=== PATIENT | female | born 1990 | race Caucasian/White ===

== ENCOUNTER → 2016-12-01 | Outpatient (CLI) | payer MEDICAID, OTHER ==
[2016-12-01 12:52] LABS: BASO % 0.4 % (0.0-1.0); EOS # 0.1 K/mm3 (0.0-0.50); EOS % 1.3 % (0.0-3.0); LARGE UNSTAINED CELL # 0.1 K/mm3 (0.0-0.4); LARGE UNSTAINED CELL % 3.1 % (0.0-4.0); LYMPH # 1.3 K/mm3 (1.5-6.5); LYMPH % 27.4 % (24.0-44.0); MEAN CORPUSCULAR HEMOGLOBIN 28.3 pg (27.0-33.0); MEAN CORPUSCULAR HGB CONC 32.9 g/dl (32.0-36.5); MEAN CORPUSCULAR VOLUME 86.1 fl (80.0-96.0); MONO # 0.7 K/mm3 (0.0-0.8); MONO % 14.8 % (0.0-5.0); NEUTROPHILS # 2.3 K/mm3 (1.8-7.7); PLATELET COUNT, AUTOMATED 175 k/mm3 (150-450); RED CELL DISTRIBUTION WIDTH 13.5 % (11.5-14.5); WHITE BLOOD COUNT 4.4 K/mm3 (4.0-10.0)
[2016-12-01 14:26] LABS: HIV SCRN NEGATIVE (NEGATIVE)
[2016-12-01 14:27] LABS: CONTROL LINE INT CTR LINE PRESENT; HIV SCRN1 NEGATIVE (NEGATIVE)
[2016-12-02 09:28] LABS: HBsAg Prenatal NEGATIVE (NEGATIVE)
== END ==
LOC: M LAB 11:58
PROVIDERS: ATTEND Advanced Practice Midwife
DX: Z34.81 Encounter for supervision of other normal pregnancy, first trimester (principal)

== ENCOUNTER → 2017-02-01 | Outpatient (CLI) | payer OTHER | LOC: M LAB 13:40 | PROVIDERS: ATTEND Advanced Practice Midwife | DX: Z36 Encounter for antenatal screening of mother (principal) ==

== ENCOUNTER → 2017-02-17 | Outpatient (CLI) | payer OTHER ==
--- NOTE | 2017-02-18 04:00 | REP ---
Clinical: Anatomical evaluation. Comparison: None . Findings: Examination demonstrates a single live intrauterine in transverse (head to maternal left side) presentation. motion is identified by technologist. Placenta is noted anteriorly and grade zero without evidence for placenta previa or abruption. Amniotic fluid volume is normal. Cervix measures 4.4 cm in length and appears closed. No evidence for nuchal cord. Gestational age by LMP 19 weeks 4 days with HECTOR 07/10/2017 . Gestational age by current measurements 90 weeks 3 days with HECTOR 07/11/2017 . FHR equals 144 beats per minute. BPD 4.6 cm 19 weeks 6 days HC 17.0 cm 19 weeks 4 days AC 14.2 cm 19 weeks 4 days FL 3.0 cm 19 weeks 2 days HL 2.7 cm 18-week 6 days HC/AC ratio 1.20 Estimated weight 293 grams ( 41st percentile). Anatomical assessment demonstrates normal structures including cranium, choroid plexus, cavum, cerebellum/posterior fossa, lungs, four-chamber heart, diaphragm, stomach, cord insertion/three-vessel cord, bladder, spine, and extremities. Limited evaluation of the facial features, cardiac ventricular outflow tracts, and kidneys noted. Impression: Single live intrauterine in transverse lie demonstrating appropriate interval growth. Anatomical limitations as described above may warrant reevaluation. Signed by Arun Blair MD 02/18/2017 03:50 A
== END ==
LOC: M RAD 11:10
PROVIDERS: ATTEND Advanced Practice Midwife
DX: Z34.82 Encounter for supervision of other normal pregnancy, second trimester (principal)

== ENCOUNTER → 2017-04-08 | Outpatient (CLI) | payer OTHER ==
[~2017-04-08] MED LIST: MOTR200T44 PO; PRENTAB9 PO; TUMS500C PO; TYLE325C PO
[2017-04-08 13:02] LABS: MEAN CORPUSCULAR HGB CONC 33.5 g/dl (32.0-36.5); MEAN CORPUSCULAR VOLUME 86.5 fl (80.0-96.0); RED CELL DISTRIBUTION WIDTH 13.9 % (11.5-14.5); WHITE BLOOD COUNT 10.4 K/mm3 (4.0-10.0)
== END ==
LOC: M SMT 09:18
PROVIDERS: ATTEND Advanced Practice Midwife
DX: Z34.82 Encounter for supervision of other normal pregnancy, second trimester (principal)

== ENCOUNTER → 2017-04-22 | Outpatient (CLI) | payer OTHER | LOC: M LAB 07:45 | PROVIDERS: ATTEND Obstetrics & Gynecology | DX: R73.02 Impaired glucose tolerance (oral) (principal) ==

== ENCOUNTER → 2017-06-17 | Outpatient (REF) | payer OTHER | LOC: M LAB REF 13:15 | PROVIDERS: ATTEND Specialist | DX: Z34.83 Encounter for supervision of other normal pregnancy, third trimester (principal); Z3A.00 Weeks of gestation of pregnancy not specified ==

== ENCOUNTER → 2017-06-23 | Outpatient (CLI) | payer OTHER ==
--- NOTE | 2017-06-23 10:21 | REP ---
Clinical: Gestational diabetes. Growth evaluation. Comparison: 02/17/2017 . Findings: Examination demonstrates a single live intrauterine in cephalic presentation. motion is identified by technologist. Placenta is noted anteriorly and grade one without evidence for placenta previa or abruption. Amniotic fluid volume is normal. No evidence for nuchal cord. Gestational age by LMP 37 weeks 4 days with HECTOR 07/10/2017 . Gestational age by current measurements 35 weeks 2 days with HECTOR 07/26/2017 . DAVID = 8.6 cm (7.4 - 24.1) FHR equals 139 beats per minute. BPD 8.5 cm 34 weeks 1 day HC 32.5 36 weeks 6 days AC 32.9 36 weeks 6 days FL 36.8 34 weeks 5 days HC/AC ratio 0.99 Estimated weight 2119 grams (30th percentile based on age by LMP). Impression: Single live advanced gestation in cephalic presentation. Estimated weight is within normal range. DAVID normal. Signed by Arun Blair MD 06/23/2017 10:12 A
== END ==
LOC: M SMT 09:23
PROVIDERS: ATTEND Specialist
DX: Z34.83 Encounter for supervision of other normal pregnancy, third trimester (principal); Z3A.37 37 weeks gestation of pregnancy

== ENCOUNTER 2017-07-04 06:52 | Inpatient (IN) | payer OTHER ==
[~2017-07-04] VITALS: Ht 167.6 cm; Wt 103.0 kg
[2017-07-04] VITALS (17 sets, daily range): BP systolic 93–114; BP diastolic 59–76
[2017-07-04] MEDS ORDERED: PRENTAB9 PO (07:10)
[2017-07-04] MEDS ORDERED: TUMS500C PO (07:11)
[2017-07-04] MEDS ORDERED: PENICILLIN G POTASSIUM IV 5 MU in D5W MINI-BAG PLUS 100 ML IV STA (07:27)
[2017-07-04 08:05] LABS: MEAN CORPUSCULAR HEMOGLOBIN 29.3 pg (27.0-33.0); MEAN CORPUSCULAR HGB CONC 35.4 g/dl (32.0-36.5); MEAN CORPUSCULAR VOLUME 82.7 fl (80.0-96.0); RED CELL DISTRIBUTION WIDTH 13.8 % (11.5-14.5); WHITE BLOOD COUNT 9.8 K/mm3 (4.0-10.0)
[2017-07-04] MEDS: miSOPROStol 50 MCG 1/2 TAB (S0191) PO SCH ×3 (08:07→16:45)
--- NOTE | 2017-07-04 15:07 | HPE ---
DATE OF ADMISSION: 07/04/2017 Lynda is a 1, para 0 at 39 weeks gestation with an estimated date of confinement (EDC) of 07/10/2017 based on last normal period and confirmed by first trimester ultrasound. She presents to labor and delivery today for induction of labor due to gestational diabetes, diet controlled, per consult with Dr. Osiris Morgan. Her care was initiated at [facility] in the first trimester. course was complicated by smoking throughout , A1 gestational diabetes and a family history of open neural tube defect. OBSTETRICAL HISTORY: Primigravida. OB LABS: Blood type O+, antibody screen negative, rubella immune, VDRL nonreactive. Urine culture: No growth. Hepatitis B surface antigen negative, HIV negative. Hepatitis C antibody negative. Gonorrhea and chlamydia negative. She did undergo the quad screen and it returned normal results. Gestational diabetic screening elevated at 191, 3-hour elevated fasting 94, 1-hour 226, 2-hour 176 and 3-hour 67. Her gestational diabetes has been well controlled with dietary management throughout her . Her GBS is positive known. PAST MEDICAL HISTORY: Seasonal allergies. SURGERIES: Tonsillectomy. FAMILY HISTORY: Cardiomyopathy, heart disease, open neural tube defect. SOCIAL HISTORY: The patient is single. However, her partner is at bedside and supportive. She is a smoker. She denies alcohol and drug use. Denies history of any sexually transmitted infections and denies a history of abuse, physical, sexual and emotional. ALLERGIES: No known drug allergies. CURRENT MEDICATIONS: Include vitamins OBJECTIVE: Temperature is 97.9, pulse 71, respirations 18, blood pressure 113/71. She is alert and oriented times three, in no apparent distress, smiling and talkative. heart rate is 145 with moderate variability, positive accelerations observed. No decelerations. Dickson every 4-6 minutes, palpate mild. Her abdomen is gravid, cephalic presentation. Estimated weight 6 pounds. Sterile vaginal exam: 1 cm dilated, 80% effaced, -3 station. ASSESSMENT: Intrauterine at 39 weeks gestation. heart rate category one. Gestational diabetes. PLAN: Admit the patient to labor and delivery, labs, out of bed ad chaparro. Group B streptococcus (GBS) prophylaxis once in labor. Misoprostol 50 mcg by mouth every 4 hours for cervical ripening. I did review risks to induction including increased risk for section, failed induction of intolerance to labor. The patient has all of her questions answered and does desire to proceed with induction.
[2017-07-04] MEDS ORDERED: OXYTOCIN DRIP 30 UNITS in APPROPRIATE DILUENT 1 EA IV SCH (20:15)
[2017-07-04] MEDS: LR 1,000 ML IV SCH (20:50)
[2017-07-04] MEDS ORDERED: PENICILLIN G POTASSIUM 5 MU VIAL As Ordered ONE (21:16)
[2017-07-05] VITALS (71 sets, daily range): BP systolic 84–143; BP diastolic 48–78
[2017-07-05] MEDS ORDERED: PROMETHAZINE INJ 25 MG/ML VIAL (J2550) IV ONE (00:30)
[2017-07-05] MEDS ORDERED: BUTORPHANOL 2 MG/ML INJ (J0595) IV ONE (00:30)
[2017-07-05] MEDS ORDERED: PROMETHAZINE INJ 25 MG/ML VIAL (J2550) As Ordered ONE (00:30)
[2017-07-05] MEDS ORDERED: BUTORPHANOL 2 MG/ML INJ (J0595) As Ordered ONE (00:31)
[2017-07-05] MEDS ORDERED: PENICILLIN G POTASSIUM 5 MU VIAL As Ordered ONE (01:57)
[2017-07-05] MEDS: PENICILLIN G POTASSIUM IV 2.5 MU in D5W 100 ML IV SCH ×5 (05:53→22:37)
[2017-07-05] MEDS: LR 1,000 ML IV SCH ×2 (13:59→17:43)
[2017-07-05] MEDS ORDERED: FENTANYL 2MCG/ML ROPIVACAINE 0.2% IN 0.9% NACL 200ML IVBAG As Ordered ONE (14:38)
[2017-07-05] MEDS ORDERED: ePHEDrine SULFATE 25 MG/5 ML(5MG/ML) SYRINGE As Ordered ONE (16:29)
[2017-07-05] MEDS: ePHEDrine SULFATE 25 MG/5 ML(5MG/ML) SYRINGE IV PRN ×2 (16:35→17:36)
[2017-07-05] MEDS ORDERED: EPIDURAL COMMENT XX SCH (16:45)
[2017-07-05] MEDS ORDERED: REFRIGERATOR IV KEYS XX PRN (16:45)
[2017-07-05] MEDS ORDERED: ONDANSETRON 4MG/2ML VIAL (J2405) IV PRN (16:45)
[2017-07-05] MEDS ORDERED: diphenhydrAMINE INJ 50MG/ML VIAL (J1200) IV PRN (16:45)
[2017-07-05] MEDS ORDERED: EPIDURAL/PCA KEYS XX PRN (16:45)
[2017-07-05] MEDS ORDERED: FENTANYL/ROPIVACAINE/NACL BAG 200 ML EPIDURAL SCH (16:45)
[2017-07-05] MEDS ORDERED: NALOXONE INJ 0.4 MG/1 ML VIAL (J2310) IV PRN (16:45)
[2017-07-06] MEDS ORDERED: MEASLES,MUMPS,RUBELLA VACCINE INJ (MMR-II) (90707) SC SCH (01:15)
[2017-07-06] MEDS ORDERED: METHYLERGONOVINE MALEATE 0.2 MG TAB PO PRN (01:15)
[2017-07-06] MEDS ORDERED: DIBUCAINE 1% OINTMENT 30GM TOP PRN (01:15)
[2017-07-06] MEDS ORDERED: DOCUSATE SODIUM 100 MG CAP PO PRN (01:15)
[2017-07-06] MEDS ORDERED: RHOGAM 300 MCG (1500 IU) INJ (J2790) IM SCH (01:15)
[2017-07-06] MEDS ORDERED: OXYTOCIN 30 UNITS IN 0.9% NaCl 500ML IV BAG (J2590) As Ordered ONE (01:36)
[2017-07-06 03:25] VITALS: BP 124/67
[2017-07-06] MEDS ORDERED: ACETAMINOPHEN 500 MG TAB PO PRN (03:45)
[2017-07-06] MEDS ORDERED: IBUPROFEN 800 MG TAB PO PRN (03:45)
[2017-07-06 05:50] VITALS: BP 107/61
[2017-07-06] MEDS: PRENATAL VITAMINS CHEWABLE TABLET PO SCH (08:08)
[2017-07-06 18:00] VITALS: BP 115/65
[2017-07-07 06:00] VITALS: BP 110/59
[2017-07-07] MEDS: PRENATAL VITAMINS CHEWABLE TABLET PO SCH (09:00)
[2017-07-07] MEDS ORDERED: MOTR200T44 PO (09:14)
[2017-07-07] MEDS ORDERED: TYLE325C PO (09:15)
== END 2017-07-07 09:45 | disposition home or self-care (01) | DRG 560 ==
LOC: M LDI 06:52 → M OBS 07-06 04:58
PROVIDERS: ADMIT Advanced Practice Midwife; ATTEND Advanced Practice Midwife
PROC: 3E0DXGC Introduction of Other Therapeutic Substance into Mouth and Pharynx, External Approach (ICD-10-PCS; 2017-07-04)
PROC: 10E0XZZ Delivery of Products of Conception, External Approach (ICD-10-PCS; principal; 2017-07-06)
PROC: 0HQ9XZZ Repair Perineum Skin, External Approach (ICD-10-PCS; 2017-07-06)
DX: O24.420 Gestational diabetes mellitus in childbirth, diet controlled (principal); F17.200 Nicotine dependence, unspecified, uncomplicated; Z37.0 Single live birth; Z3A.39 39 weeks gestation of pregnancy; O99.334 Smoking (tobacco) complicating childbirth; O99.820 Streptococcus B carrier state complicating pregnancy; O70.0 First degree perineal laceration during delivery; O69.82X0 Labor and delivery complicated by other cord entanglement, without compression, not applicable or unspecified

== ENCOUNTER → 2018-05-17 | Outpatient (REF) | payer OTHER | LOC: M LAB REF 17:59 | DX: Z12.4 Encounter for screening for malignant neoplasm of cervix (principal) | CPT/HCPCS: 88142 ==

== ENCOUNTER 2020-02-21 14:52 | Emergency (ER) | payer MEDICAID, OTHER ==
[~2020-02-21] VITALS: Ht 167.6 cm; Wt 92.4 kg
[2020-02-21] MEDS ORDERED: BENA25CA4 PO (14:59)
[2020-02-21 15:58] LABS: BASO % 0.4 % (0.0-1.0); EOS # 0.1 10^3/uL (0.0-0.5); EOS % 0.9 % (0.0-3.0); HEMATOCRIT 42.2 % (36.0-47.0); HEMOGLOBIN 13.5 g/dl (12.0-15.5); LYMPH # 2.9 10^3/uL (1.5-5.0); LYMPH % 33.4 % (24.0-44.0); MEAN CORPUSCULAR HEMOGLOBIN 28.1 pg (27.0-33.0); MEAN CORPUSCULAR VOLUME 87.7 fl (80.0-96.0); MONO # 0.6 10^3/uL (0.0-0.8); MONO % 6.6 % (0.0-5.0); NEUTROPHILS % 58.2 % (36.0-66.0); PLATELET COUNT, AUTOMATED 241 10^3/uL (150-450); RED BLOOD COUNT 4.81 10^6/uL (4.00-5.40); WHITE BLOOD COUNT 8.5 10^3/uL (4.0-10.0)
[2020-02-21 16:41] LABS: ALBUMIN 3.9 GM/DL (3.2-5.2); BILIRUBIN,DIRECT 0.2 MG/DL (0.0-0.2); BILIRUBIN,TOTAL 0.6 MG/DL (0.2-1.0); TOTAL PROTEIN 7.4 GM/DL (6.4-8.2)
--- NOTE | 2020-02-21 17:21 | REP ---
RIGHT UPPER QUADRANT ULTRASOUND: Real-time sonographic evaluation of right upper quadrant performed. Gallbladder demonstrates no evidence of intraluminal sludge or calculi, wall thickening, or pericholecystic fluid. There is no intrahepatic or extrahepatic biliary dilatation, common bile duct measuring 4 mm in diameter. Liver and pancreas demonstrate no gross mass. Right kidney demonstrates no hydronephrosis with normal size 10.9 cm in length. There is no ascites. IMPRESSION: Negative right upper quadrant ultrasound. Electronically Signed by Roddy Barnett MD 02/22/2020 12:54 P
--- NOTE | 2020-02-21 17:44 | REP ---
CT ABDOMEN/PELVIS WITHOUT CONTRAST: CT abdomen/pelvis performed without oral or IV contrast. Sagittal and coronal images are performed. Visualized lung bases are clear. The liver, spleen, adrenals, pancreas, and kidneys are grossly unremarkable. No radiopaque gallstones are seen, and there is no gallbladder wall edema. No renal, ureteral, or bladder calculus is seen. There is no hydroureteronephrosis. There is no abdominal aortic aneurysm. There is no adenopathy. There is no free air or free fluid. No bowel thickening is seen. The appendix is normal. There appears to be a small cyst of the left ovary 3.5 cm in diameter. Urinary bladder is not optimally distended and not optimally evaluated. IMPRESSION: No renal, ureteral, or bladder calculus. No hydroureteronephrosis. Normal appendix. No free air or free fluid. Cyst left ovary measures 3.5 cm in maximum diameter. Electronically Signed by Roddy Barnett MD 02/22/2020 12:55 P
[2020-02-21] MEDS ORDERED: OMEP10CASR PO (17:57)
[2020-02-21 18:05] VITALS: BP 119/70
== END 2020-02-21 18:07 | disposition home or self-care (01) ==
LOC: M ED 14:52
DX: R10.11 Right upper quadrant pain (principal); N83.202 Unspecified ovarian cyst, left side; Z79.899 Other long term (current) drug therapy; F12.20 Cannabis dependence, uncomplicated

== ENCOUNTER 2020-04-04 20:23 | Emergency (ER) | payer OTHER ==
[~2020-04-04] VITALS: Ht 167.6 cm; Wt 89.5 kg
[2020-04-04 20:23] VITALS: BP 163/85
[~2020-04-04 20:23] MED LIST changes: +BENA25CA4 PO; +OMEP10CASR PO
[2020-04-04] MEDS ORDERED: ONDANSETRON 4MG/2ML VIAL IV ONE (21:15)
[2020-04-04] MEDS ORDERED: SUCRALFATE 1 GM TAB PO ONE (21:15)
[2020-04-04] MEDS ORDERED: PANTOPRAZOLE 40MG VIAL (C9113 PER 1) IV ONE (21:15)
[2020-04-04] MEDS ORDERED: GI COCKTAIL 50ML BTL(HYOSCYAMINE/MAALOX/LIDOCAINE VISCOUS)(1:3:1) PO ONE (21:15)
[2020-04-04] MEDS ORDERED: NS 1,000 ML IV ONE (21:15)
[2020-04-04 21:20] LABS: BASO % 0.4 % (0.0-1.0); EOS # 0.1 10^3/uL (0.0-0.5); EOS % 0.9 % (0.0-3.0); HEMATOCRIT 40.8 % (36.0-47.0); LYMPH # 2.1 10^3/uL (1.5-5.0); LYMPH % 25.8 % (24.0-44.0); MEAN CORPUSCULAR HEMOGLOBIN 27.9 pg (27.0-33.0); MEAN CORPUSCULAR HGB CONC 31.9 g/dl (32.0-36.5); MEAN CORPUSCULAR VOLUME 87.6 fl (80.0-96.0); MONO # 0.6 10^3/uL (0.0-0.8); MONO % 7.5 % (0.0-5.0); NEUTROPHILS # 5.2 10^3/uL (1.5-8.5); PLATELET COUNT, AUTOMATED 241 10^3/uL (150-450); RED BLOOD COUNT 4.66 10^6/uL (4.00-5.40)
[2020-04-04 21:34] LABS: APPEARANCE, URINE CLEAR (CLEAR); BACTERIA, URINE AUTO NEGATIVE (NEGATIVE); BILIRUBIN, URINE AUTO NEGATIVE (NEGATIVE); BLOOD, URINE BLOOD 2+ (NEGATIVE); COLOR, URINE YELLOW (YELLOW); GLUCOSE, URINE (UA) AUTO NEGATIVE (NEGATIVE); KETONE, URINE AUTO NEGATIVE (NEGATIVE); LEUKOCYTE ESTERASE, URINE AUTO NEGATIVE (NEGATIVE); MUCUS, URINE SMALL (NEGATIVE); NITRITE, URINE AUTO NEGATIVE (NEGATIVE); PROTEIN, URINE AUTO NEGATIVE (NEGATIVE); RBC, URINE AUTO 1 /HPF (0-3); SPECIFIC GRAVITY URINE AUTO 1.018 (1.002-1.035); SQUAMOUS EPITHELIAL CELL UR AU 1 /HPF (0-6); UROBILINOGEN, URINE AUTO 0.2 mg/dL (0.0-2.0); WBC, URINE AUTO 1 /HPF (0-3)
[2020-04-04 21:42] LABS: ALBUMIN 4.1 GM/DL (3.2-5.2); ALT/SGPT 17 U/L (12-78); BILIRUBIN,DIRECT 0.2 MG/DL (0.0-0.2); BILIRUBIN,TOTAL 0.7 MG/DL (0.2-1.0); BLOOD UREA NITROGEN 10 MG/DL (7-18); CALCIUM LEVEL 8.9 MG/DL (8.5-10.1); CARBON DIOXIDE LEVEL 26 MEQ/L (21-32); CHLORIDE LEVEL 107 MEQ/L (98-107); GLOMERULAR FILTRATION RATE > 60.0 (>60); GLUCOSE, FASTING 93 MG/DL (70-100); LIPASE 48 U/L (73-393); POTASSIUM SERUM 3.5 MEQ/L (3.5-5.1); SODIUM LEVEL 138 MEQ/L (136-145); TOTAL PROTEIN 7.8 GM/DL (6.4-8.2)
--- NOTE | 2020-04-04 21:54 | REPVR ---
PROCEDURE INFORMATION: Exam: US Abdomen Limited, Right Upper Quadrant Exam date and time: 04/04/2020 9:45 PM Age: 30 years old Clinical indication: Abdominal pain; Acute; Additional info: Ruq abd pain TECHNIQUE: Imaging protocol: Real-time ultrasound of the abdomen with image documentation. Examination was focused on the right upper quadrant. COMPARISON: GALLBLADDER US 02/21/2020 3:52 PM FINDINGS: Liver: Normal. No masses. Gallbladder: Normal. No gallstones. There is no gallbladder wall thickening. Common bile duct: Normal. No stones. No dilation. Pancreas: No focal abnormality involving the visualized portions of the pancreas. Right kidney: Mild right renal pelviectasis. IMPRESSION: 1. Normal gallbladder. 2. Mild right renal pelviectasis, CT as clinically warranted. Electronically signed by: Thien Zurita On 04/04/2020 21:54:18 PM
[2020-04-04] MEDS ORDERED: ONDA4TAB6 PO (22:23)
[2020-04-04] MEDS ORDERED: CARA1TAB6 PO (22:23)
[2020-04-04] MEDS ORDERED: PROT1TAB2 PO (22:23)
== END 2020-04-04 22:29 | disposition home or self-care (01) ==
LOC: M ED 20:23
DX: K21.9 Gastro-esophageal reflux disease without esophagitis (principal); R10.13 Epigastric pain; Z79.899 Other long term (current) drug therapy
CPT/HCPCS: 76705; 80047; 80048; 80076; 81001; 83690; 84702; 85025; 96361; 96374; 96375; 99284; C9113; J2405

== ENCOUNTER 2022-03-29 12:37 | Emergency (ER) | payer OTHER ==
[~2022-03-29] VITALS: Ht 167.6 cm; Wt 100.0 kg
[~2022-03-29 12:37] MED LIST changes: +CARA1TAB6 PO; +ONDA4TAB6 PO; +PROT1TAB2 PO
[2022-03-29] MEDS ORDERED: HYDR-3363 (12:47)
[2022-03-29] MEDS ORDERED: VENL37.598 (12:47)
[2022-03-29] MEDS ORDERED: CETI-24 (12:47)
[2022-03-29] MEDS ORDERED: ACETAMINOPHEN 500 MG TAB PO ONE (14:45)
[2022-03-29] MEDS ORDERED: LIDO5DIS41 TD (15:36)
[2022-03-29 15:45] VITALS: BP 134/86
== END 2022-03-29 15:46 | disposition home or self-care (01) ==
LOC: M ED 12:37
DX: M54.50 Low back pain, unspecified (principal); M25.552 Pain in left hip; W08.XXXA Fall from other furniture, initial encounter; Y92.099 Unspecified place in other non-institutional residence as the place of occurrence of the external cause; F10.10 Alcohol abuse, uncomplicated; F17.200 Nicotine dependence, unspecified, uncomplicated

== ENCOUNTER 2022-08-16 13:47 | Emergency (ER) | payer OTHER ==
[~2022-08-16] VITALS: Ht 167.6 cm; Wt 108.5 kg
[~2022-08-16 13:47] MED LIST changes: +CETI-24; +HYDR-3363; +LIDO5DIS41 TD; +VENL37.598
[2022-08-16 14:34] LABS: BASO % 0.3 % (0.0-1.0); EOS # 0.2 10^3/uL (0.0-0.5); EOS % 2.3 % (0.0-3.0); HEMATOCRIT 42.8 % (36.0-47.0); HEMOGLOBIN 13.6 g/dl (12.0-15.5); LYMPH # 2.2 10^3/uL (1.5-5.0); LYMPH % 25.6 % (24.0-44.0); MEAN CORPUSCULAR HEMOGLOBIN 27.4 pg (27.0-33.0); MEAN CORPUSCULAR HGB CONC 31.8 g/dl (32.0-36.5); MEAN CORPUSCULAR VOLUME 86.3 fl (80.0-96.0); MONO # 0.6 10^3/uL (0.0-0.8); MONO % 7.5 % (2.0-8.0); NEUTROPHILS # 5.5 10^3/uL (1.5-8.5); NEUTROPHILS % 63.7 % (36.0-66.0); PLATELET COUNT, AUTOMATED 266 10^3/uL (150-450); RED BLOOD COUNT 4.96 10^6/uL (4.00-5.40); WHITE BLOOD COUNT 8.6 10^3/uL (4.0-10.0)
[2022-08-16 15:00] LABS: BLOOD UREA NITROGEN 12 MG/DL (7-18); C REACTIVE PROTEIN QUANTITATIV 0.52 MG/DL (0.00-0.30); CARBON DIOXIDE LEVEL 24 MEQ/L (21-32); CHLORIDE LEVEL 112 MEQ/L (98-107); CREATININE FOR GFR 0.59 MG/DL (0.55-1.30); GLOMERULAR FILTRATION RATE > 60.0 (>60); GLUCOSE, FASTING 100 MG/DL (70-100); POTASSIUM SERUM 4.3 MEQ/L (3.5-5.1); SODIUM LEVEL 141 MEQ/L (136-145)
[2022-08-16 16:03] LABS: ERYTHROCYTE SEDIMENTATION RATE 14 mm/hr (0-20)
[2022-08-16] MEDS ORDERED: AUGMENTIN 875 MG TAB PO ONE (16:05)
[2022-08-16] MEDS ORDERED: BOOSTRIX/ADACEL VACCINE (DIPHTH/PERTUSS/ACELL/TETANUS) 0.5ML SYR IM.IMMUN ONE (16:05)
[2022-08-16] MEDS ORDERED: AMOX875T2 PO (16:15)
[2022-08-16 16:41] VITALS: BP 140/73
== END 2022-08-16 16:54 | disposition home or self-care (01) ==
LOC: M ED 13:47
DX: S61.451A Open bite of right hand, initial encounter (principal); S61.452A Open bite of left hand, initial encounter; W55.01XA Bitten by cat, initial encounter; Z79.899 Other long term (current) drug therapy

== ENCOUNTER → 2023-04-27 | Outpatient (REF) | payer OTHER ==
[~2023-04-27] MED LIST changes: +AMOX875T2 PO
[2023-04-27 18:39] LABS: BASO % 0.3 % (0.0-1.0); EOS # 0.3 10^3/uL (0.0-0.5); EOS % 2.4 % (0.0-3.0); HEMATOCRIT 40.4 % (36.0-47.0); HEMOGLOBIN 12.8 g/dl (12.0-15.5); LYMPH # 3.1 10^3/uL (1.5-5.0); LYMPH % 25.9 % (24.0-44.0); MEAN CORPUSCULAR HEMOGLOBIN 27.5 pg (27.0-33.0); MEAN CORPUSCULAR HGB CONC 31.7 g/dl (32.0-36.5); MEAN CORPUSCULAR VOLUME 86.9 fl (80.0-96.0); MONO % 8.1 % (2.0-8.0); NEUTROPHILS # 7.3 10^3/uL (1.5-8.5); NEUTROPHILS % 61.2 % (36.0-66.0); PLATELET COUNT, AUTOMATED 289 10^3/uL (150-450); RED BLOOD COUNT 4.65 10^6/uL (4.00-5.40); WHITE BLOOD COUNT 11.9 10^3/uL (4.0-10.0)
== END ==
LOC: M LAB REF 17:20
PROVIDERS: ATTEND Physician Assistant
DX: F34.1 Dysthymic disorder (principal); F17.210 Nicotine dependence, cigarettes, uncomplicated; R06.2 Wheezing

== ENCOUNTER → 2024-02-18 | Outpatient (REF) | payer OTHER | LOC: M LAB REF 17:29 | PROVIDERS: ATTEND Physician Assistant | DX: Z01.419 Encounter for gynecological examination (general) (routine) without abnormal findings (principal); Z11.3 Encounter for screening for infections with a predominantly sexual mode of transmission ==

== ENCOUNTER → 2025-01-25 | Outpatient (REF) | payer OTHER ==
[~2025-01-25] MED LIST changes: +ONDA-282 PO; -ONDA4TAB6 PO
== END ==
LOC: M LAB REF 17:16
PROVIDERS: ATTEND Physician Assistant
DX: N61.1 Abscess of the breast and nipple (principal); N61.0 Mastitis without abscess

== ENCOUNTER → 2025-01-26 | Outpatient (REF) | payer OTHER | LOC: M LAB REF 17:19 | PROVIDERS: ATTEND Surgery | DX: N61.1 Abscess of the breast and nipple (principal) ==

== ENCOUNTER → 2025-02-01 | Outpatient (CLI) | payer OTHER | LOC: M WHC 09:26 | PROVIDERS: ATTEND Surgery | DX: N61.1 Abscess of the breast and nipple (principal) ==